=== PATIENT | female | born 1950 | race Caucasian/White ===

== ENCOUNTER → 2017-06-12 | Outpatient (CLI) | payer OTHER ==
--- NOTE | 2017-06-13 11:48 | MM ---
Reason for exam: screening (asymptomatic). Last mammogram was performed 1 year and 8 months ago. History: Patient is postmenopausal. Family history of breast cancer in mother at age 86 and breast cancer in sister at age 68. Benign cyst aspiration of the left breast, 1989. Physical Findings: A clinical breast exam by your physician is recommended on an annual basis and results should be correlated with mammographic findings. MG Screening Mammo w CAD Bilateral CC and MLO view(s) were taken. Prior study comparison: October 18, 2015, bilateral MG screening mammo w CAD. March 04, 2014, bilateral MG screening mammo w CAD. The breast tissue is heterogeneously dense. This may lower the sensitivity of mammography. There is a 3mm mass right upper outer quadrant at posterior depth. No suspicious abnormality in the left breast. ASSESSMENT: Incomplete: need additional imaging evaluation, BI-RAD 0 RECOMMENDATION: Special view mammogram of the right breast. If lesion persists on supplemental views, image directed ultrasound is recommended. [facility] will attempt to contact patient to return for supplemental views and ultrasound if indicated.
== END | disposition home or self-care (01) ==
LOC: RADMAMWWP 07:51
PROVIDERS: ATTEND Obstetrics & Gynecology
DX: Z12.31 Encounter for screening mammogram for malignant neoplasm of breast (principal); M85.80 Other specified disorders of bone density and structure, unspecified site; M89.9 Disorder of bone, unspecified
CPT/HCPCS: 77067

== ENCOUNTER → 2017-06-24 | Outpatient (CLI) | payer OTHER ==
--- NOTE | 2017-06-24 13:46 | MM ---
Reason for exam: additional evaluation requested from abnormal screening. Last mammogram was performed less than 1 month ago. History: Patient is postmenopausal. Family history of breast cancer in mother at age 86 and breast cancer in sister at age 68. Benign cyst aspiration of the left breast, 1989. Physical Findings: Nurse did not find any significant physical abnormalities on exam. MG 3D Work Up W/Cad RT CC, MLO, XCCL, ML, and spot compression MLO view(s) were taken of the right breast. Prior study comparison: June 12, 2017, bilateral MG screening mammo w CAD. October 18, 2015, bilateral MG screening mammo w CAD. There is no discrete abnormality including area of concern. These results were verbally communicated with the patient and result sheet given to the patient on 06/24/17. ASSESSMENT: Negative, BI-RAD 1 RECOMMENDATION: Return to routine screening mammogram schedule for both breasts.
== END | disposition home or self-care (01) ==
LOC: RADMAMWWP 12:58
PROVIDERS: ATTEND Obstetrics & Gynecology
DX: R92.8 Other abnormal and inconclusive findings on diagnostic imaging of breast (principal)
CPT/HCPCS: 77065; G0279

== ENCOUNTER → 2018-03-13 | Outpatient (CLI) | payer OTHER, MEDICARE ==
[2018-03-13 10:08] LABS: Basophils % (A) 1 %; Eosinophils # (A) 0.1 k/uL (0-0.7); Eosinophils % (A) 2 %; HCT 43.2 % (34.0-46.0); HGB 14.3 gm/dL (11.4-16.0); Lymphocytes # (A) 1.4 k/uL (1.0-4.8); Lymphocytes % (A) 40 %; MCH 30.2 pg (25.0-35.0); MCHC 33.1 g/dL (31.0-37.0); MCV 91.3 fL (80.0-100.0); Mean Platelet Volume 6.8; Monocytes # (A) 0.3 k/uL (0-1.0); Monocytes % (A) 8 %; Neutrophils # (A) 1.7 k/uL (1.3-7.7); Neutrophils % (A) 47 %; Platelet Count 251 k/uL (150-450); RBC 4.73 m/uL (3.80-5.40); RDW 14.5 % (11.5-15.5); WBC 3.6 k/uL (3.8-10.6)
[2018-03-13 10:15] LABS: Appearance,Urine Cloudy (Clear); Bacteria,Urine Rare /hpf; Bilirubin,Urine Negative (Negative); Blood,Urine Trace (Negative); Color,Urine Yellow; Glucose,Urine (UA) Negative (Negative); Ketones,Urine Negative (Negative); Leukocyte Esterase,Urine Large (Negative); Mucus,Urine Occasional /hpf; Nitrite,Urine Negative (Negative); Protein,Urine Trace (Negative); RBC,Urine 5 /hpf (0-5); Specific Gravity,Urine 1.021 (1.001-1.035); Squamous Epithelial Cell,Urine 31 /hpf (0-4); Urobilinogen,Urine <2.0 mg/dL (<2.0); WBC,Urine 59 /hpf (0-5)
[2018-03-13 17:37] LABS: Hemoglobin A1C 4.9 % (4.0-6.0)
[2018-03-13 20:54] LABS: Albumin 4.4 g/dL (3.80-4.90); Albumin/Globulin Ratio 1.91 (1.20-2.10); Anion Gap 8.9 mmol/L (4.00-12.00); Calcium 9.4 mg/dL (8.7-10.3); Carbon Dioxide 23.1 mmol/L (21.6-31.8); Globulin 2.3 g/dL (2.1-3.7); LDL Cholesterol,Calculated 123.4 mg/dL (0.0-131.0); Magnesium 2.1 mg/dL (1.5-2.4); Potassium 4.1 mmol/L (3.5-5.5); Total Bilirubin 0.8 mg/dL (0.3-1.2); Total Protein 6.7 g/dL (6.2-8.2); Uric Acid 4.6 mg/dL (2.9-7.7); VLDL Calculation 13.6 mg/dL (5.00-40.00)
[2018-03-13 21:02] LABS: T4, Free (Free Thyroxine) 0.9 ng/dL (0.80-1.80)
== END | disposition home or self-care (01) ==
LOC: LABWHC1 09:46
PROVIDERS: ATTEND Internal Medicine
DX: Z00.00 Encounter for general adult medical examination without abnormal findings (principal); I10 Essential (primary) hypertension; M81.0 Age-related osteoporosis without current pathological fracture; F32.89 Other specified depressive episodes
CPT/HCPCS: 36415; 80053; 80061; 81001; 82306; 82550; 83036; 83735; 84439; 84443; 84550; 85025

== ENCOUNTER → 2018-06-15 | Outpatient (CLI) | payer OTHER ==
--- NOTE | 2018-06-15 15:20 | BD ---
EXAMINATION TYPE: Axial Bone Density DATE OF EXAM: 06/15/2018 COMPARISON: NONE CLINICAL HISTORY: Height: 63 Weight: 131.1 FRAX RISK QUESTIONS: Alcohol (3 or more units per day): no Family History (Parent hip fracture): yes-mother Glucocorticoids (More than 3mos): no (Ex: prednisone, prednisolone, methylprednisolone, dexamethasone, and hydrocortisone). History of Fracture in Adulthood: no Secondary Osteoporosis: 1. Type 1 Diabetes: no 2. Hyperthyroidism: no 3. Menopause before 45: no 4. Malnutrition: no 5. Chronic liver disease: no Rheumatoid Arthritis: no Current Tobacco Use: no RISK FACTORS HISTORY OF: Family History of Osteoporosis: yes Active: yes Diet low in dairy products/other sources of calcium: no Postmenopausal woman: age57 Lost more than 2 inches in height since high school: no MEDICATIONS: Toprol, Additional History: EXAM MEASUREMENTS: Bone mineral densitometry was performed using the [employer] System. Bone mineral density as measured about the Lumbar spine is: ----- L1-L4(G/cm2): 1.199 T Score Values are as follows: ----- L2: -0.2 ----- L3: 0.5 ----- L4: 0.7 ----- L1-L4: 0.2 Bone mineral density has: decreased -0.1 % since study of: 10.18.2015 Bone mineral density about the R hip (g/cm2): 0.737 Bone mineral density about the L hip (g/cm2): 0.771 T Score values are as follows: -----R Neck: -2.2 -----L Neck: -1.9 -----R Total: -1.7 -----L Total: -1.8 Bone mineral density has: decreased -1.1 % since study of: 10.18.2015 IMPRESSION: Osteopenia about the bilateral femora. NOTE: T-SCORE=SD OF THE YOUNG ADULT MEAN.
--- NOTE | 2018-06-17 08:09 | MM ---
Reason for exam: screening (asymptomatic). Last mammogram was performed 1 year ago. History: Patient is postmenopausal. Family history of breast cancer in mother at age 86 and breast cancer in sister at age 68. Benign cyst aspiration of the left breast, 1989. Physical Findings: A clinical breast exam by your physician is recommended on an annual basis and results should be correlated with mammographic findings. MG 3D Screening Mammo W/Cad Bilateral CC and MLO view(s) were taken. Prior study comparison: June 24, 2017, right breast MG 3d work up w/cad RT. June 12, 2017, bilateral MG screening mammo w CAD. The breast tissue is heterogeneously dense. This may lower the sensitivity of mammography. There is no discrete abnormality. No significant changes when compared with prior studies. ASSESSMENT: Benign, BI-RAD 2 RECOMMENDATION: Routine screening mammogram of both breasts in 1 year.
== END | disposition home or self-care (01) ==
LOC: RADMAMWWP 09:42
PROVIDERS: ATTEND Internal Medicine
DX: Z12.31 Encounter for screening mammogram for malignant neoplasm of breast (principal); M85.88 Other specified disorders of bone density and structure, other site
CPT/HCPCS: 77063; 77067; 77080

== ENCOUNTER → 2019-07-28 | Outpatient (CLI) | payer MEDICARE ==
--- NOTE | 2019-07-28 11:09 | MM ---
Reason for exam: screening (asymptomatic). Last mammogram was performed 1 year and 1 month ago. History: Patient is postmenopausal. Family history of breast cancer in mother at age 86 and breast cancer in sister at age 68. Benign cyst aspiration of the left breast, 1989. Physical Findings: A clinical breast exam by your physician is recommended on an annual basis and results should be correlated with mammographic findings. MG 3D Screening Mammo W/Cad Bilateral CC and MLO view(s) were taken. Prior study comparison: June 15, 2018, bilateral MG 3d screening mammo w/cad. June 24, 2017, right breast MG 3d work up w/cad RT. The breast tissue is heterogeneously dense. This may lower the sensitivity of mammography. Benign appearing calcifications in the left breast. No suspicious abnormality. No significant changes when compared with prior studies. ASSESSMENT: Benign, BI-RAD 2 RECOMMENDATION: Routine screening mammogram of both breasts in 1 year.
== END | disposition home or self-care (01) ==
LOC: RADMAMWWP 07:07
PROVIDERS: ATTEND Internal Medicine
DX: Z12.31 Encounter for screening mammogram for malignant neoplasm of breast (principal)
CPT/HCPCS: 77063; 77067

== ENCOUNTER → 2020-07-21 | Outpatient (CLI) | payer MEDICARE ==
--- NOTE | 2020-07-21 16:29 | BD ---
EXAMINATION TYPE: Axial Bone Density DATE OF EXAM: 07/21/2020 COMPARISON: 06.15.2018 CLINICAL HISTORY: 70 YR OLD FEMALE.....ICD-10 CODE: M81.0 AGE RELATED OSTEOPOROSIS Height: 61.8 Weight: 130 FRAX RISK QUESTIONS: Family History (Parent hip fracture): YES RISK FACTORS HISTORY OF: Family History of Osteoporosis: YES, MOTHER AND FATHER, WITH HIP FXS Postmenopausal woman: YES, ABOUT AGE 48 Hyperparathyroidism: NO Adrenal Insufficiency: NO MEDICATIONS: Osteoporosis Medications: YES, ONCE A MONTH PILL, FOR ABOUT 1-2 YRS Additional Medications: BP MEDS, STATIN FOR CHOLESTEROL, LEXAPRO, REFLUX MEDS, CALCIUM WITH D3 Additional History: CHOLESTEROL, HEARTBURN, HYPERTENSION EXAM MEASUREMENTS: Bone mineral densitometry was performed using the [employer] System. Bone mineral density as measured about the Lumbar spine is: ----- L1-L4(G/cm2): 1.248 T Score Values are as follows: ----- L1: 0.0 ----- L2: -0.2 ----- L3: 1.3 ----- L4: 1.1 ----- L1-L4: 0.6 Bone mineral density has: Increased 3.7% since study of: 06.15.2018 Bone mineral density about the R hip (g/cm2): 0.786 Bone mineral density about the L hip (g/cm2): 0.775 T Score values are as follows: -----R Neck: -1.7 -----L Neck: -2.0 -----R Total: -1.8 -----L Total: -1.8 Bone mineral density has: Decreased -0.4% since study of: 06.15.2018 FRAX%S: THERE IS A 19.3% CHANCE FOR A MAJOR OSTEOPOROTIC FX AND A 3.4% FOR HIP......PROBABILITY FOR FX IN 10 YRS TIME IMPRESSION: Osteopenia (T Score between -2.5 and -1). There is slightly increased risk of fracture and the patient may be considered for treatment. Re-Screen 2-5 years. NOTE: T-SCORE=SD OF THE YOUNG ADULT MEAN.
== END ==
LOC: RADBDWWP 08:36
PROVIDERS: ATTEND Internal Medicine
DX: M85.89 Other specified disorders of bone density and structure, multiple sites (principal)
CPT/HCPCS: 77080

== ENCOUNTER → 2020-07-24 | Outpatient (CLI) | payer MEDICARE ==
--- NOTE | 2020-07-24 08:03 | US ---
EXAMINATION TYPE: US gallbladder DATE OF EXAM: 07/24/2020 COMPARISON: NONE CLINICAL HISTORY: 70-year-old female R10.13 dyspepsia. Nausea. TECHNIQUE: Multiple sonographic images of the right upper quadrant are obtained. FINDINGS: EXAM MEASUREMENTS: Liver Length: 11.9 cm Gallbladder Wall: 0.2 cm CBD: 0.4 cm Right Kidney: 9.4 x 3.8 x 3.4 cm Pancreas: appears wnl Liver: Overall homogeneous appearance and normal size. Gallbladder: non mobile mural based echogenic focus measuring 3 mm along the posterior wall. No abno rmal gallbladder distention, wall thickening, pericholecystic fluid, or shadowing calculi. Evidence for sonographic Reyes's sign: no CBD: wnl Right Kidney: no evidence of hydronephrosis IMPRESSION: 1. A 3 mm nonmobile, nonshadowing nodule along the posterior wall of the gallbladder, suspected small gallbladder wall polyp. Six-month follow-up ultrasound can reassess. 2. No gallstones or biliary ductal dilatation.
--- NOTE | 2020-07-24 08:50 | FL ---
EXAMINATION TYPE: FL barium swallow DATE OF EXAM: 07/24/2020 CLINICAL HISTORY: Food sticking in throat for one year. Reflux of food per patient. Dyspepsia. TECHNIQUE: A double contrast esophagram is performed utilizing air and barium. A total of 44 second s of fluoroscopic time was utilized during procedure and 33 images obtained COMPARISON: None FINDINGS: The esophagus shows mild dysmotility. There is moderate size posterior diverticulum in the midline estimated approximately 5 x 5 cm in size extending inferiorly originating lower cervical leve ls suspected from near junction of hypopharynx and proximal esophagus. No evidence of fixed hiatal he rnia or stricture noted. Overlying sternal wires and mediastinal clips along with mitral valve surgic al change and epicardial pacer wires are noted. No significant gastroesophageal reflux was seen jmi yao real time performance of this study. IMPRESSION: Moderate size esophageal diverticulum suspected Zenker's type .
== END | disposition home or self-care (01) ==
LOC: RADUSWWP 06:59
PROVIDERS: ATTEND Internal Medicine
DX: K82.8 Other specified diseases of gallbladder (principal); M81.0 Age-related osteoporosis without current pathological fracture
CPT/HCPCS: 74220; 76705

== ENCOUNTER 2020-09-25 10:21 | Day surgery (SDC) | payer MEDICARE ==
[2020-09-21 13:41] VITALS: BMI 23.3
[~2020-09-25 10:21] MED LIST: DEXAMETHASONE SOD PHOSPHATE 4 MG/ML 1 ML VIAL IV ONE; HYDROmorphone 0.5 MG/0.5 ML SYRINGE IVP PRN; LACTATED RINGERS 1,000 ML IV SCH; ONDANSETRON 4 MG/2 ML VIAL IVP ONE
[2020-09-25 10:51] VITALS: RESP 16; TEMP 99.1
[2020-09-25] MEDS ORDERED: LIDOCAINE 1% (10MG/ML) FOR IV START INTRADERMA ONE (10:51)
[2020-09-25] MEDS ORDERED: PROPOFOL 10 MG/ML 20 ML VIAL IV ONE (11:04)
[2020-09-25] MEDS ORDERED: LIDOCAINE 1% INJ 10MG/ML (20 ML MDV) ONE (11:04)
[2020-09-25 11:22] VITALS: BP 79/47; PULSE 59
--- NOTE | 2020-09-25 11:22 | P.PCN ---
Date of Procedure: 09/25/20 Description of Procedure: BRIEF HISTORY: Patient is a 70-year-old female presenting for esophagogastroduodenoscopy for evaluation of Zenker's diverticulum in symptoms of difficulty swallowing and regurgitation of food. Patient had persistent symptoms and underwent a swallow evaluation which showed a diverticulum approximate 5 cm x 5 cm in size performed on 07/24/20. EGD was ordered for further evaluation. Patient does report that surgical options have been discussed with her. PROCEDURE PERFORMED: Esophagogastroduodenoscopy with biopsy. PREOPERATIVE DIAGNOSIS: []. ESTIMATED BLOOD LOSS: Minimal. IV sedation per anesthesia. PROCEDURE: After informed consent was obtained, the patient was brought into the endoscopy unit. IV sedation was administered by Anesthesia under continuous monitoring. Initially the Olympus GIF-190 video endoscope was inserted into the mouth. Esophagus intubated without any difficulty. It was gradually advanced into the stomach and duodenum and carefully examined. The bulb and the second part of the duodenum appeared normal, with biopsies taken. The scope at this time was withdrawn to the stomach, adequately insufflated with air, and upon careful examination, mucosa of the antrum, body, cardia and the fundus appeared normal, with biopsies of antrum and body taken. The scope was then withdrawn into the esophagus. The GE junction was located at 35 cm from the incisors, with a 2 cm hiatal hernia noted. The esophagus appeared essentially normal except for a proximal diverticulum consistent with history of Zenker's diverticulum measuring approximately 2 cm in size. There were no erosions or ulcerations seen and the patient tolerated the procedure well. IMPRESSION: 1. Zenker's diverticulum, noted in the proximal esophagus, appeared to be smaller in size and estimated on barium swallow. 2. Small hiatal hernia. 3. Biopsies of the duodenum, antrum and body and lower esophagus. RECOMMENDATIONS: The findings of this examination were discussed with the patient and her family. Okay to resume diet. Okay to resume medications. Await pathology from biopsies. Follow up in primary care physician's office as scheduled. Patient would likely benefit from referral to tertiary center for evaluation by ENT.
== END 2020-09-25 11:55 | disposition home or self-care (01) ==
LOC: ORWHC2ENDO 10:21
PROVIDERS: ATTEND Internal Medicine
DX: K22.5 Diverticulum of esophagus, acquired (principal); K29.50 Unspecified chronic gastritis without bleeding; K20.90 Esophagitis, unspecified without bleeding; K44.9 Diaphragmatic hernia without obstruction or gangrene; I10 Essential (primary) hypertension; E78.5 Hyperlipidemia, unspecified; F32.9 Major depressive disorder, single episode, unspecified; Z79.82 Long term (current) use of aspirin; Z79.899 Other long term (current) drug therapy
CPT/HCPCS: 88305; 43239; J2001; J2704

== ENCOUNTER → 2020-10-05 | Outpatient (CLI) | payer MEDICARE ==
--- NOTE | 2020-10-09 09:00 | MM ---
Reason for exam: screening (asymptomatic). Last mammogram was performed 1 year and 2 months ago. History: Patient is postmenopausal. Family history of breast cancer in mother at age 86 and breast cancer in sister at age 68. Benign cyst aspiration of the left breast, 1989. Physical Findings: A clinical breast exam by your physician is recommended on an annual basis and results should be correlated with mammographic findings. MG 3D Screening Mammo W/Cad Bilateral CC and MLO view(s) were taken. Prior study comparison: July 28, 2019, bilateral MG 3d screening mammo w/cad. June 15, 2018, bilateral MG 3d screening mammo w/cad. The breast tissue is heterogeneously dense. This may lower the sensitivity of mammography. Stable benign calcifications. There is no discrete abnormality. No significant changes when compared with prior studies. ASSESSMENT: Benign, BI-RAD 2 RECOMMENDATION: Routine screening mammogram of both breasts in 1 year.
== END | disposition home or self-care (01) ==
LOC: RADMAMWWP 09:19
PROVIDERS: ATTEND Internal Medicine
DX: Z12.31 Encounter for screening mammogram for malignant neoplasm of breast (principal); Z78.0 Asymptomatic menopausal state; Z80.3 Family history of malignant neoplasm of breast
CPT/HCPCS: 77063; 77067

== ENCOUNTER → 2021-06-06 | Outpatient (CLI) | payer MEDICARE ==
--- NOTE | 2021-06-06 11:39 | FL ---
EXAMINATION TYPE: FL barium swallow DATE OF EXAM: 06/06/2021 COMPARISON: 07/24/2020 HISTORY: Zenker's diverticulum dysphasia TECHNIQUE: Double air contrast technique is utilized to evaluate the esophagus. FINDINGS: A large sinker's diverticulum is identified. Contrast is seen flowing into and out of the Z enker's diverticulum during the exam. The more distal esophagus has a normal caliber normal contour to the gastroesophageal junction. Gastr oesophageal junction opens to normal caliber. Secondary and tertiary contractions were observed. IMPRESSION: 1. Zenker's diverticulum extending from the C3-4 level to C7-T1 level. 2. Presbyesophagus.
== END ==
LOC: RADUSWWP 10:16
PROVIDERS: ATTEND Internal Medicine
DX: K22.5 Diverticulum of esophagus, acquired (principal); K22.89 Other specified disease of esophagus
CPT/HCPCS: 74220

== ENCOUNTER → 2021-10-08 | Outpatient (CLI) | payer MEDICARE ==
--- NOTE | 2021-10-08 15:10 | US ---
EXAMINATION TYPE: US carotid duplex BILAT DATE OF EXAM: 10/08/2021 COMPARISON: Carotid ultrasound October 29, 2010 CLINICAL HISTORY: I65.23 OCCLUSION AND STENOSIS OF BILATERAL. Stenosis EXAM MEASUREMENTS: RIGHT: Peak Systolic Velocity (PSV) cm/sec ----- Right CCA: 65.0 ----- Right ICA: 89.4 ----- Right ECA: 51.9 ICA/CCA ratio: 1.4 RIGHT: End Diastole cm/sec ----- Right CCA: 18.8 ----- Right ICA: 30.6 ----- Right ECA: 8.2 LEFT: Peak Systolic Velocity (PSV) cm/sec ----- Left CCA: 73.6 ----- Left ICA: 82.6 ----- Left ECA: 86.5 ICA/CCA ratio: 1.1 LEFT: End Diastole cm/sec ----- Left CCA: 18.8 ----- Left ICA: 33.9 ----- Left ECA: 15.1 VERTEBRALS (direction of flow): Right Vertebral: Antegrade Left Vertebral: Antegrade Rhythm: Normal No significant stenosis seen Reaves scale images show mild peripheral plaque bilateral carotid bulb level. Velocity measurements and ratios are within normal limits bilaterally. IMPRESSION: No hemodynamic significant stenosis in either internal carotid artery. Criteria for Assigning % of Stenosis / Diameter reduction (Estimation based on the indirect measurements of the internal carotid artery velocities (ICA PSV). 1. Normal (no stenosis)=ICA PSV < 125 cm/s: ratio < 2.0: ICA EDV<40 cm/s. 2. Less than 50% stenosis=ICA PSV < 125 cm/s: ratio < 2.0: ICA EDV<40 cm/s. 3. 50 to 69% stenosis=ICA PSV of 125 to 230 cm/s: ration 2.0 ? 4.0: ICA EDV 40-100 cm/s. 4. Greater than 70% stenosis to near occlusion= ICA PSV > 230 cm/s: ratio > 4.0: ICA EDV > 100 cm/s. 5. Near occlusion= ICA PSV velocities may be low or undetectable: variable ratio and ICA EDV. 6. Total occlusion=unable to detect flow.
--- NOTE | 2021-10-10 08:50 | MM ---
Reason for Exam: Screening (asymptomatic). Last screening mammogram was performed 12 month(s) ago. Patient History: Menarche at age 16. First Full-Term at age 25. Postmenopausal. 1989, Benign Cyst Aspiration on the left side. Sister had breast cancer, age 68. Mother had breast cancer, age 86. Risk Values: Shelbie 5 year model risk: 6.3%. NCI Lifetime model risk: 18.4%. Film Views: Bilateral CC views were taken. Bilateral MLO views were taken. Prior Study Comparison: 06/15/2018 Bilateral Screening Mammogram, [facility]. 07/28/2019 Bilateral Screening Mammogram, [facility]. 10/05/2020 Bilateral Screening Mammogram, [facility]. Tissue Density: The breast tissue is heterogeneously dense. This may lower the sensitivity of mammography. Findings: Analyzed By CAD. No suspicious spiculated or lobular masses, clusters of microcalcifications, architectural distortion, or other secondary signs to radiographically apparent. No significant interval change is evident. Benign calcifications within the left breast. Overall Assessment: Benign, BI-RAD 2 Management: Screening Mammogram of both breasts in 1 year. A clinical breast exam by your physician is recommended on an annual basis and results should be correlated with mammographic findings. Electronically signed and approved by: Mian Serna D.O. Radiologis
== END | disposition home or self-care (01) ==
LOC: RADUSWWP 13:38
PROVIDERS: ATTEND Internal Medicine
DX: Z12.31 Encounter for screening mammogram for malignant neoplasm of breast (principal); I65.23 Occlusion and stenosis of bilateral carotid arteries; Z78.0 Asymptomatic menopausal state; Z80.3 Family history of malignant neoplasm of breast
CPT/HCPCS: 77063; 77067; 93880

== ENCOUNTER → 2022-10-09 | Outpatient (CLI) | payer MEDICARE ==
--- NOTE | 2022-10-09 15:18 | BD ---
EXAMINATION TYPE: Axial Bone Density DATE OF EXAM: 10/09/2022 CLINICAL HISTORY: 72 years old Female. ICD-10 CODE: M85.851 OSTEOPENIA OF RIGHT HIP Height: 61.7 in Weight: 132 lbs Secondary Osteoporosis: RISK FACTORS HISTORY OF: Active: yes Postmenopausal woman: approximately age 47 MEDICATIONS: Osteoporosis Medications: Which medication: Actonel How Lon year Additional Medications: calcium, vit d, metoprolol, baby aspirin, vit c, b12 EXAM MEASUREMENTS: Bone mineral densitometry was performed using the [employer] System. Bone mineral density as measured about the Lumbar spine is: ----- L1-L4(G/cm2): 1.242 T Score Values are as follows: ----- L1: -0.5 ----- L2: 0.0 ----- L3: 1.0 ----- L4: 1.2 ----- L1-L4: 0.5 Z Score Values are as follows: ----- L1: 1.4 ----- L2: 1.9 ----- L3: 2.9 ----- L4: 3.1 ----- L1-L4: 2.4 Bone mineral density has: Decreased -0.5% since study of: 07/21/2020 Bone mineral density about the R hip (g/cm2): 0.783 Bone mineral density about the L hip (g/cm2): 0.777 T Score values are as follows: -----R Neck: -2.3 -----L Neck: -2.3 -----R Total: -1.8 -----L Total: -1.8 Z Score values are as follows: -----R Neck: -0.5 -----L Neck: -0.5 -----R Total: -0.2 -----L Total: -0.2 Bone mineral density has: no change 0.0% since study of: 07/21/2020 FRAX%s: The graph provided illustrates a 13.8% chance for a major osteoporotic fx and a 3.3% chance f or the hips probability for fx in 10 years time. IMPRESSION: Osteopenia (T Score between -2.5 and -1). There is slightly increased risk of fracture and the patient may be considered for treatment. Re-Screen 2-5 years. NOTE: T-SCORE=SD OF THE YOUNG ADULT MEAN.
--- NOTE | 2022-10-10 12:15 | MM ---
Reason for Exam: Screening (asymptomatic). Last screening mammogram was performed 12 month(s) ago. Patient History: Menarche at age 16. First Full-Term at age 25. Postmenopausal. 1989, Benign Cyst Aspiration on the left side. Mother had breast cancer, age 86. Risk Values: Shelbie 5 year model risk: 3.0%. NCI Lifetime model risk: 8.7%. Prior Study Comparison: 07/28/2019 Bilateral Screening Mammogram, [facility]. 10/05/2020 Bilateral Screening Mammogram, [facility]. 10/08/2021 Bilateral MG 3D screening mammo w/cad, [facility]. Tissue Density: The breast tissue is heterogeneously dense. This may lower the sensitivity of mammography. Findings: Analyzed By CAD. There is no suspicious group of microcalcifications or new suspicious mass in either breast. Overall Assessment: Negative, BI-RAD 1 Management: Screening Mammogram of both breasts in [address] [facility] will attempt to contact patient to return for supplemental views and ultrasound if indicated. Patient should continue monthly self-breast exams. A clinical breast exam by your physician is recommended on an annual basis. This exam should not preclude additional follow-up of suspicious palpable abnormalities. Note on Shelbie scores and lifetime risk: 1. A Shelbie score greater than 3% is considered moderate risk. If this is the case, consider specialist referral to assess eligibility for a risk reducing agent. 2. If overall lifetime risk for the development of breast cancer is 20% or higher, the patient may qualify for future screening with alternating mammogram and breast MRI. Electronically signed and approved by: Viral Harry DO
== END | disposition home or self-care (01) ==
LOC: RADMAMWWP 10:45
PROVIDERS: ATTEND Internal Medicine
DX: Z12.31 Encounter for screening mammogram for malignant neoplasm of breast (principal); M85.851 Other specified disorders of bone density and structure, right thigh; Z78.0 Asymptomatic menopausal state; Z80.3 Family history of malignant neoplasm of breast
CPT/HCPCS: 77063; 77067; 77080

== ENCOUNTER → 2023-10-15 | Outpatient (CLI) | payer MEDICARE ==
--- NOTE | 2023-10-15 23:29 | MM ---
Reason for Exam: Screening (asymptomatic). Last screening mammogram was performed 12 month(s) ago. Patient History: Menarche at age 16. First Full-Term at age 25. Postmenopausal. 1989, Benign Cyst Aspiration on the left side. Mother had breast cancer, age 86. Risk Values: Shelbie 5 year model risk: 3.0%. NCI Lifetime model risk: 8.3%. Prior Study Comparison: 10/05/2020 Bilateral Screening Mammogram, [facility]. 10/08/2021 Bilateral MG 3D screening mammo w/cad, [facility]. 10/09/2022 Bilateral MG 3D screening mammo w/cad, [facility]. Tissue Density: The breasts are heterogeneously dense, which may obscure small masses. Findings: Analyzed By CAD. The pattern is symmetrical. No significant interval change. No suspicious groups of microcalcifications, spiculated or lobular masses, architectural distortion or other secondary signs of malignancy are mammographically apparent. Overall Assessment: Benign, BI-RAD 2 Management: Screening Mammogram of both breasts in 1 year. A negative mammogram report should not preclude additional follow up of suspicious palpable abnormalities. Patient should continue monthly self breast exam. A clinical breast exam by your physician is recommended on an annual basis and results should be correlated with mammographic findings. Note on Shelbie scores and lifetime risk: 1. A Shelbie score greater than 3% is considered moderate risk. If this is the case, consider specialist referral to assess eligibility for a risk reducing agent. 2. If overall lifetime risk for the development of breast cancer is 20% or higher, the patient may qualify for future screening with alternating mammogram and breast MRI. Electronically signed and approved by: Mian Serna D.O. Radiologis
== END | disposition home or self-care (01) ==
LOC: RADMAMWWP 13:23
PROVIDERS: ATTEND Internal Medicine
DX: Z12.31 Encounter for screening mammogram for malignant neoplasm of breast (principal); Z78.0 Asymptomatic menopausal state; Z80.3 Family history of malignant neoplasm of breast
CPT/HCPCS: 77063; 77067

== ENCOUNTER → 2024-09-22 | Outpatient (CLI) | payer MEDICARE ==
--- NOTE | 2024-09-22 12:48 | XR ---
EXAMINATION TYPE: XR lumbar spine 2 or 3V DATE OF EXAM: 09/22/2024 CLINICAL HISTORY: pain TECHNIQUE: Three views of the lumbar spine are submitted. COMPARISON: None. FINDINGS: There are 6 lumbar type vertebral bodies identified. The lumbar spine shows satisfactory alignment w ithout evidence of acute fracture or dislocation. Vertebral body heights are within normal limits. Ceasar th SI joints appear intact. Multilevel disc space narrowing with endplate sclerosis. Multilevel fac et arthropathy. The overlying soft tissue appears unremarkable. There are 2 calculi lateral to the L 6 transverse process with largest measuring up to 1.1 cm. Probably represent pelvic phleboliths. IMPRESSION: 1. No acute fracture or dislocation is seen in the lumbar spine. 2. Mild multilevel degenerative disc disease. [facility], , 09/22/2024 12:46 PM
--- NOTE | 2024-09-22 12:51 | XR ---
EXAMINATION TYPE: XR Hip Complete RT, XR femur RT DATE OF EXAM: 09/22/2024 12:30 PM INDICATION: Patient age:Female; 74 years old; Reason for study: M25.551 PAIN IN RIGHT HIP; [facility]. pain COMPARISON: None. TECHNIQUE: The right hip was examined in the frontal and lateral projections . Additional frontal and lateral projections of the right femur are obtained. FINDINGS: No evidence of any acute osseous pathology, joint dislocation, or soft tissue swelling. No significant joint space narrowing or osteophyte formation of the right hip. No osseous erosions or pe riosteal reaction. IMPRESSION: No acute osseous pathology. [facility], , 09/22/2024 12:49 PM
== END | disposition home or self-care (01) ==
LOC: RADXRMAIN 11:51
PROVIDERS: ATTEND Internal Medicine
DX: M51.369 Other intervertebral disc degeneration, lumbar region without mention of lumbar back pain or lower extremity pain (principal)
CPT/HCPCS: 72100; 73502